=== PATIENT | female | born 1975 | race Caucasian/White ===

== ENCOUNTER 2025-10-02 11:35 | Outpatient (CLI) | payer OTHER | END 2025-10-02 11:36 | disposition home or self-care (01) | LOC: BICMAMMO 11:35 | PROVIDERS: ATTEND Nurse Practitioner Family | DX: Z12.31 Encounter for screening mammogram for malignant neoplasm of breast (principal); Z13.820 Encounter for screening for osteoporosis; M81.0 Age-related osteoporosis without current pathological fracture; M85.80 Other specified disorders of bone density and structure, unspecified site; E28.9 Ovarian dysfunction, unspecified; Z98.82 Breast implant status | CPT/HCPCS: 77063; 77067; 77080 ==